=== PATIENT | male | born 1990 | race Caucasian/White ===

== ENCOUNTER 2019-12-08 00:48 | Emergency (ER) | payer OTHER ==
[2019-12-08] MEDS ORDERED: Sodium Chloride 0.9% 1,000 ML IV ONE (00:49)
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
[2019-12-08] MEDS ORDERED: Iopamidol 612 MG/ML 100 ML Bottle IVPUSH ONE (01:20)
[2019-12-08] MEDS ORDERED: Iopamidol 612 MG/ML 50 ML SDV IVPUSH ONE (01:20)
[2019-12-08] MEDS ORDERED: Ondansetron 4 MG/2 ML SDV IVPUSH ONE (02:21)
[2019-12-08] MEDS ORDERED: Ondansetron 4 MG/2 ML SDV ONE (02:22)
[2019-12-08] MEDS ORDERED: Potassium Chloride 10 MEQ in Premix Bag 1 BAG IV SCH (02:30)
--- NOTE | 2019-12-08 14:15 | CR ---
Chest: Portable supine view of the chest was obtained. Comparison: No prior chest x-ray, prior chest CT performed earlier on the same day (1 AM). Heart size and mediastinum are normal. Lungs are clear with no acute parenchymal change. Previous nondisplaced rib fractures are not seen on this plain film study. No gross rib abnormality or other gross osseous finding is seen. Impression: 1. Nothing acute is appreciated on portable supine chest x-ray. Diagnostic code #1 This report was dictated in MDT
--- NOTE | 2019-12-08 14:25 | CT ---
Head CT Technique: Multiple axial sections through the brain were obtained. Intravenous contrast was not utilized. Comparison: No prior intracranial imaging is available. Findings: Small subdural hematoma is seen primarily overlying the right temporal lobe with extension into the parietal and posterior frontal regions. Greatest thickness of this subdural hematoma is approximately 5 mm. Subarachnoid blood is seen on the right side extending into the right sylvian fissure. No additional intracranial hemorrhage is appreciated. Slight midline shift is seen by about 1.5-2 mm. Soft tissue injury is noted within the left parietal scalp with soft tissue air and skin injury. Soft tissue swelling and soft tissue hematoma is noted. Fracture is identified within the left posterior parietal skull which extends to the skull base which comes close to the mastoid sinus but does not involve the mastoid sinus. No displacement is appreciated. No additional calvarial abnormality is appreciated. Mucosal thickening is noted within the sphenoid, maxillary and ethmoid sinuses. Right periorbital hematoma is seen. Right and left globes are symmetric in size. Extraocular muscles and optic nerves are also symmetric in size. Additional skull base fracture appears to be present medial to the right mastoid sinus which is nondisplaced. Mild brain edema is also noted mostly on the right side. Impression: 1. Small subdural hematoma primarily within the right temporal region extending into the parietal and posterior frontal regions. Maximum thickness is approximately 5 mm. 2. Mild midline shift of 1.5-2 mm. 3. Nondisplaced skull fracture within the posterior left parietal skull extending into the skull base medial to the mastoid sinus. Additional skull base fracture is noted on the right side medial to mastoid sinus. 4. Subarachnoid hemorrhage on the right side mostly within the sylvian fissure. 5. Scalp injury as described above. Soft tissue swelling within the right periorbital region. Sinus findings which are most likely chronic. 6. Mild brain edema most prominent on the right side. Diagnostic code #5 This report was dictated in MDT I agree with preliminary report from [facility], finalized on 12/08/19, 2:33 AM Central Daylight Time
--- NOTE | 2019-12-08 14:33 | CT ---
CT cervical spine Technique: Multiple axial sections were obtained from above C1 inferiorly to the bottom of T1. Reconstructed sagittal and coronal images were reviewed. Comparison: No prior cervical spine imaging is available. Findings: Skull base fractures are seen on both sides, slightly more prominent on the left side. Vertebral body heights and disc spaces are maintained. Vertebral bodies and posterior arches are intact with no fracture being seen. No abnormal subluxation is appreciated. Impression: 1. Skull base fractures which were described on head CT exam. 2. Nothing acute is seen within the cervical spine. Diagnostic code #3 This report was dictated in MDT I agree with preliminary report from [facility], finalized on 12/08/19, 2:49 AM Central Daylight Time
--- NOTE | 2019-12-08 14:33 | CT ---
CT chest Technique: Multiple axial sections through the chest were obtained. Intravenous contrast was utilized. Comparison: No prior chest imaging is available. Limitations: Mild motion artifact is noted. Very slight increased density within the superior mediastinum is seen. Findings may represent minimal residual thymus or very slight mediastinal hematoma. Pulsation artifact noted within the thoracic aorta. No mediastinal mass or adenopathy is seen. No pericardial fluid is seen. Lungs are clear with no acute parenchymal change. No pleural effusions are noted. No pulmonary contusion is seen. Bone window settings were reviewed. Nondisplaced fractures are felt to be present in an anterolateral location within the left 6th and 7th ribs. No additional rib fracture is appreciated. Vertebral body heights are maintained. No discrete acute thoracic spine abnormality is seen. Reconstructed sagittal image of the sternum appear intact. Impression: 1. Findings suspicious for nondisplaced fractures within the anterolateral left 6th and 7th ribs on the left side. 2. Mild motion artifact. 3. No other acute abnormality is appreciated on CT study of the chest. Diagnostic code #3 This report was dictated in MDT I agree with preliminary report from [facility], finalized on 12/08/19, 2:[address] abdomen and pelvis Technique: Multiple axial sections were obtained from above the dome of the diaphragm inferiorly through the pubic symphysis. Intravenous contrast was utilized. No oral contrast has been given. Delayed images were obtained through the bladder. Reconstructed coronal and sagittal images were reviewed. Comparison: No prior abdominal or pelvic imaging is available. Findings: Liver shows no focal parenchymal abnormality. Spleen appears within normal limits. Kidneys show symmetric contrast enhancement without acute abnormality. Adrenal glands show no nodule. Pancreas appears within normal limits. Gallbladder contains no calcified gallstones. Aorta shows no aneurysm. No retroperitoneal adenopathy or mesenteric abnormalities are seen. No pelvic mass or adenopathy is seen. No free fluid or inflammatory change is appreciated. Appendix is seen which is normal in size. Delayed images shows contrast within the distal ureters and within the bladder. Bone window settings were reviewed. No acute thoracic spine abnormality is appreciated on this exam. No acute pelvic abnormality is appreciated. Impression: 1. Nothing acute is appreciated on CT study of the abdomen and pelvis. Diagnostic code #1 This report was dictated in MDT I agree with preliminary report from [facility], finalized on 12/08/19, 2:42 AM Central Daylight Time
== END 2019-12-08 03:10 ==
LOC: JD.ED 00:48
DX: S22.42XA Multiple fractures of ribs, left side, initial encounter for closed fracture (principal); S02.0XXA Fracture of vault of skull, initial encounter for closed fracture; S01.01XA Laceration without foreign body of scalp, initial encounter; S06.5X0A Traumatic subdural hemorrhage without loss of consciousness, initial encounter; S06.6X0A Traumatic subarachnoid hemorrhage without loss of consciousness, initial encounter; E87.6 Hypokalemia; Z20.828 Contact with and (suspected) exposure to other viral communicable diseases
CPT/HCPCS: 36415; 70450; 71045; 71260; 72125; 74177; 80053; 80307; 85007; 85027; 85610; 85730; 87635; 96361; 96365; 96375; 99285; J2405; J3480; J7030; Q9967; U0002